=== PATIENT | female | born 1985 | race Caucasian/White ===

== ENCOUNTER 2017-03-26 23:43 | Emergency (ER) | payer OTHER ==
[~2017-03-26] VITALS: Ht 167.6 cm; Wt 75.0 kg
[2017-03-26 23:45] VITALS: BP 128/72; PULSE 91; RESP 16; O2SAT 97
--- NOTE | 2017-03-27 00:12 | ED.REPORT ---
HPI-Seizure Date of Service Mar 27, 2017 ED Provider: Dr. Gera Galvez The patient is a 31 year old female w/ a hx of epilepsy diagnosed 6 years ago who presents to the ED due to a seizure around 2300 that lasted 10 minutes. She bit her tongue and denies incontinence or any other symptoms. She ran out of 3TIERra 10 days ago, the prescription was delayed coming in. The pt recently had a normal MRI of her brain. Her last seizure was 8 years ago. Nursing Notes Stated Complaint: SEIZURE Chief Complaint: Seizure Nursing Notes Reviewed: Yes Allergies: Uncoded Allergies: CRAB (Allergy, Severe, Hives, 03/26/17) General Time Seen by Provider: 00:12 Chief Complaint Chief Complaint: Seizure, focal Hx Obtained From: Patient Arrived By: Walk-in Onset Occurred: 1 - 4 hours ago Symptom Duration: Since onset Recent Healthcare: No recent doctor visit, No recent hospitalization Similar Sx Previous: Yes Past Medical History Past Medical History epilepsy Past Surgical History denies Smoking History Unknown if Ever Smoker Social History Other Social History: Good social support, Local resident Ambulatory Status Independent Review of Systems Review of Systems Note: tongue contusion Ears / Nose / Throat: Reports: Tongue pain, Tongue swelling Neurologic: Reports: Seizure Complete sys rev & neg: except as marked. Female: Denies: Incontinence Physical Exam Initial Vital Signs Vital Signs (First) Date Time Temp Pulse Resp B/P Pulse Ox O2 Delivery O2 Flow Rate FiO2 03/26/17 23:45 36.5 91 16 128/72 97 Room Air Initial VS: Reviewed General/Constitutional: Awake, Alert, Cooperative, Not toxic appearing Neck: Atraumatic, Supple Respiratory / Chest: Atraumatic, Breath sounds NL, Breath sounds = bilat Cardiovascular: Heart rate NL, Regular rhythm, Heart sounds NL Neurologic: Oriented X3, Speech NL, No motor deficits Head / Eyes: Atraumatic, Normocephalic, PERRL, EOMI ENT: Mucous membranes moist tongue contusion Upper Extremity / MS: Atraumatic, Inspection NL, Full range of motion Lower Extremity / Pelvis / MS: Atraumatic, Inspection NL, Full range of motion Skin: Atraumatic, Color NL, No rash Interpretation & Diagnostics Lab Results Interpretation Result Diagram: 03/26/17 2347 03/26/17 2347 Test 03/26/17 23:47 White Blood Count 16.9th/mm3 (3.8-10.1) Red Blood Count 4.79mil/mm3 (3.90-5.20) Hemoglobin 14.5g/dL (12.0-15.6) Hematocrit 42.0% (35.0-46.0) Mean Corpuscular Volume 87.7fL (81-100) Mean Corpuscular Hemoglobin 30.3pg (27.0-35.0) Mean Corpuscular Hemoglobin Concent 34.5% (32.0-37.0) Red Cell Distribution Width 13.3% (12.3-15.4) Platelet Count 381bil/L (150-400) Neutrophils (%) (Auto) 30.8% (40-74) Lymphocytes (%) (Auto) 57.3% (14-46) Monocytes (%) (Auto) 7.8% (4-12) Eosinophils (%) (Auto) 3.1% (0-5) Basophils (%) (Auto) 0.5% (0-3) Hold Purple Top Tube Received (Received) Hold Blue Top Tube Received (Received) Sodium Level 137mEq/L (134-144) Potassium Level 3.3mEq/L (3.5-5.2) Chloride Level 95mEq/L (97-108) Carbon Dioxide Level 12mmol/L (18-29) Blood Urea Nitrogen 15mg/dL (6-20) Creatinine 0.93mg/dL (0.57-1.00) Estimat Glomerular Filtration Rate 101mL/min (>59) Glucose Level 145mg/dL (60-99) Calcium Level 9.3mg/dL (8.5-10.1) Total Bilirubin 0.3mg/dL (0.0-1.2) Aspartate Amino Transf (AST/SGOT) 27U/L (0-50) Alanine Aminotransferase (ALT/SGPT) 26U/L (0-32) Alkaline Phosphatase 66U/L (25-150) Total Protein 7.8g/dL (6.4-8.4) Albumin 4.6g/dL (3.4-5.0) Human Chorionic Gonadotropin, Qual Negative (Negative) Hold [place] Top Tube Received (Received) Re-Eval/Medical Decision Med Decision/Clinical Course 0015: Plan for Keppra and Valium. Pt ran out of her Keppra 10 days ago. She bit her tongue, denies incontinence and any other symptoms. Valium given. IV Infused. Diagnostics reassuring and consistent with a seizure. Brief. Observation and she look well. No further seizure activity. Vital signs stable. I will refill her Keppra. Have close outpatient follow- up. She has had a recent normal MRI suite feel that neuro imaging is indicated. She has been out of her Keppra for 10 days which most likely explains the seizure. Routine seizure instructions warnings given Re-Evaluation/Progress : Time of Eval: 00:15 Re-Evaluation/Progress Note: Plan for Keppra and Valium. Counseled Regarding: Diagnosis, Lab results, Need for follow-up, When/why to return to ED Discharge & Departure Impression: Primary Impression: Seizure Disposition: Home Discharge Condition All VS Reviewed: Yes Condition: Stable Patient Instructions: Epilepsy (ED) Additional Instructions: Fill the Keppra prescription tomorrow morning. Follow-up with primary care physician. Be sure that the prescriptions have gone through as well. Take the paper prescription and with you. Routine seizure aftercare instructions. Do not drive or participate in any activities that put you or others at risk if you have another seizure. Referrals: Zita Rush MD (PCP) Scribe Attestation Portion of this note were transcribed by Mansi Gonzalez. I, Dr. Galvez, personally performed the history, physical exam, and medical decision-making: I reviewed and confirmed the accuracy for the information in the transcribed note. Signed by: guerda James, 03/27/17 3784 copies to: Zita Rush MD, Todd P DO Mar 27, 2017 00:12 Mansi Gonzalez Mar 27, 2017 00:20
[2017-03-27] MEDS ORDERED: levETIRAcetam Inj 1,500 MG in Dextrose 5% 100 ML IV ONE (00:15)
[2017-03-27 00:27] LABS: BASOPHILS % (AUTO) 0.5 % (0-3); EOSINOPHILS % (AUTO) 3.1 % (0-5); MONOCYTES % (AUTO) 7.8 % (4-12); Mean Corpuscular Hemoglobin 30.3 pg (27.0-35.0); Mean Corpuscular Volume 87.7 fL (81-100); NEUTROPHILS % (AUTO) 30.8 % (40-74); Platelet Count 381 bil/L (150-400)
[2017-03-27] MEDS ORDERED: Sodium Chloride LOK Flush 10 mL Syringe IVFLUSH SCH (00:30)
[2017-03-27] MEDS ORDERED: Ondansetron 2 mg/mL 2 mL Inj IVPUSH PRN (00:40)
[2017-03-27 00:56] VITALS: BP 118/69; PULSE 68; RESP 18; O2SAT 99
[2017-03-27 01:30] VITALS: BP 118/80; PULSE 66; RESP 15; O2SAT 98
== END 2017-03-27 01:34 | disposition home or self-care (01) ==
LOC: SED 23:43 → EDBD 23:43 → SED 03-27 01:34
DX: R56.9 Unspecified convulsions (principal); Z91.013 Allergy to seafood
CPT/HCPCS: 36415; 80053; 84703; 85025; 96374; 96375; 99285; J1953; J2405; J3360